=== PATIENT | female | born 1995 | race Caucasian/White ===

== ENCOUNTER 2018-05-05 09:45 | Day surgery (SDC) | payer MEDICAID, SELFPAY ==
[2018-05-05] VITALS (7 sets, daily range): BP systolic 106–144; BP diastolic 62–81; PULSE 65–81; RESP 14–16; TEMP 36.2–36.6; O2SAT 95–98; BMI 30.7
--- NOTE | 2018-05-05 | IMM_PTH ---
PATIENT: LUIS ALBERTO MOSLEY LOC: [facility] – [place] U#:[id number] AGE/SX: 23/F ROOM: RE05/05/[address]: Dr. Ana Hall DO : 1995 BED: DIS: 05/05/2018 SPEC #: [id number] RECD: 05/07/18 09:43 STATUS: XAVIER REWillem #: [id number] CATINA: 05/05/18 00:[address]: Ana aHll DEPT: IMMUNOHISTOCHEMISTRY RECD BY: Gill Patel ENTERED: 05/07/18 09:46 SP TYPE: IMMUNO OTHR DR: Out of [facility] Doctor Tissues: Product of conception, NOS Procedures: CD138 (initial) PHYSICIAN & INSTITUTION [place] [id number] SPECIMEN INFORMATION: Tissue Source: Products of conception Clinical Info: Missed Specimen Number: [id number] CPT code: 27754 METHODOLOGY: Deparaffinized sections of prefer/formalin-fixed tissue or PAP/DQ stained slides are incubated with monoclonal/polyclonal antibodies/oligonucleotide probes. Localization is made via biotin free immunoperoxidase method. Appropriate controls are performed and reacted as expected. Results on target cell population are indicated in the following table: RESULTS: ANTIBODY / CLONE RESULT CD138 (B-A38) positive, rare plasma cells These tests were developed and their performance characteristics determined by [facility]. They may not have been cleared or approved by the U.S. Food and Drug Administration. The FDA has determined that such clearance or approval is not necessary. INTERPRETATION: Products of conception: Consistent with mild chronic endometritis. SJ:scott 05/07/18
--- NOTE | 2018-05-05 11:30 | POC_PTH ---
PATIENT: LUIS ALBERTO MOSLEY LOC: [facility] [place] U#:[id number] AGE/SX: 23/F ROOM: RE05/05/[address]: Dr. Ana Hall DO : 1995 BED: DIS: 05/05/2018 SPEC #: [id number] RECD: 05/05/18 12:17 STATUS: XAVIER RAMIREZ #: [id number] CATINA: 05/05/18 11:[address]: Ana Hall DEPT: SURGICAL PATHOLOGY RECD BY: Chiqui Perez ENTERED: 05/05/18 12:30 SP TYPE: PROD CONC OTHR DR: Out of [facility] Doctor Tissues: Product of conception, NOS Procedures: Surgery Specimen Level IV HEADER OPERATION: Dilation and curettage, suction PRE-OP DIAGNOSIS: Missed TISSUE SUBMITTED: Products of conception MICROSCOPIC DIAGNOSIS Products of conception: Dyschronous endometrium consisting predominantly of proliferative endometrium mixed with focal area of weakly secretory endometrium. Rare plasma cells consistent with mild chronic endometritis. See comment. Fragments of benign endocervical mucosa. TIARA:scott 05/06/18 COMMENT The entire specimen is examined. Chorionic villii are not identified in the submitted specimen. Immunohistochemistry ([id number]) supports the diagnosis of mild chronic endometritis. Correlation with clinical findings and appropriate follow up are necessary. Case has been reviewed in consultation with Dr. Farnsworth who concurs with the above diagnosis. IDC:AM MICROSCOPIC DESCRIPTION Slides are reviewed. GROSS DESCRIPTION Received in fixative is one container labeled with the patient's name and designated products of conception. The specimen consists of multiple irregular fragments of james-pink soft tissue that in aggregate measure 3 x 2.5 x 0.3 cm. The entire specimen is submitted in one cassette. / TIARA:scott 05/05/18 TC:5 CPT: 40153
--- NOTE | 2018-05-05 12:42 | PCM.OP.BLANK ---
Problem List (1) Missed Status: Acute Operative Report Date of Procedure: 05/05/18 Preoperative diagnosis: missed Postoperative diagnosis: missed Procedure performed: suction dilation and curettage Anesthesia: MAC Estimated blood loss: 30 cc Complications: none Findings: Uterus palpated to be about 5 weeks in size. Cervix was closed. Products of conception noted during suction dilation and curettage Indications: The patient is a 23-year-old who was diagnosed with a missed in the office. She tried one dose of Cytotec. After the Cytotec an ultrasound was performed showing retained products of conception measuring [id number]. Her options including repeat Cytotec, and surgery were discussed. Risks, benefits, and alternatives were discussed and she elected for a suction dilation and curettage. Procedure note: The patient was taken to the operating room where MAC anesthesia was administered without difficulty. The patient was prepped and draped in the usual usual sterile fashion in lithotomy position. A weighted speculum was placed. The anterior lip of the cervix was grasped with a single-tooth tenaculum. At this time the cervix was serially dilated to accommodate a size 7 mm suction curettage. The 7 mm suction curettage was advanced into the uterine cavity without difficulty and was used to suction contents of the uterus. Following removal of the products of conception after 3 passes, a sharp curettage was used and a gritty texture was noted. No further retained products of conception was noted with sharp curettage. The single-tooth tenaculum was then removed. There was bleeding noted at the tenaculum site on the patient's left. Pressure was applied for several minutes at the site using a ring forcep, but there was continued bleeding. A 3-0 [address] was used to place a [id number] suture over the tenaculum site to ensure hemostasis. Fundus was firm and bleeding was hemostatic. All instruments were removed. The patient was stable at the completion of the procedure. Sponge, lap, and instrument counts were correct.
--- NOTE | 2018-05-05 12:59 | PCM.DC.D&C ---
Discharge Diet: No Restrictions Discharge Activity: Return to Normal Activity Return to work on:: 05/11/18December shower in (days): 0 May resume sexual activity in: No Restrictions - Must wait to try to conceive until after first normal period. Abstain from intercourse or use condoms regularly and consistently until first normal period. Weight Bearing Status: Weight bearing as tolerated Lifting Restrictions: None Call your doctor if you observe: Fever of 101 or Higher, Using more than one pad per hour, Shortness of breath, Uncontrolled pain, - - Nausea and vomiting Additional Instructions: Take Tylenol and Motrin as needed for the pain. You will have light bleeding - spotting, and cramping. To follow up in the office in 1 week. Allergies/Adverse Reactions: Allergies Sulfa (Sulfonamide Antibiotics) Allergy (Verified 05/01/18 08:42) Swelling Medications to take at Discharge Albuterol Inhaler [Ventolin Hfa (SP)] 1 - 2 puff INHALATION Q4H PRN PRN 05/01/18 Primary Care Physician: Rao Gonzalez,Out of [Primary Care Provider] - Test Results: Test results from this visit will be discussed in further detail at your follow-up appointment, if applicable. Proposed Discharge Date: 05/05/18
== END 2018-05-05 13:30 | disposition home or self-care (01) ==
LOC: SDC 09:47 → AC 09:48
PROVIDERS: Visit Provider Obstetrics & Gynecology
PROC: (CPT 59820; principal; 2018-05-05 11:15)
DX: O02.1 Missed abortion (principal); J45.909 Unspecified asthma, uncomplicated; F17.210 Nicotine dependence, cigarettes, uncomplicated
CPT/HCPCS: 59820; 36415; 86850; 86900; 88305; 88342; J7120; J2405

== ENCOUNTER 2019-05-03 16:07 | Emergency (ER) | payer MEDICAID, SELFPAY ==
[2019-05-03 16:08] VITALS: BP 124/73; PULSE 101; RESP 18; TEMP 36.5; O2SAT 97; BMI 35.2
--- NOTE | 2019-05-03 16:29 | ED.DCSUM_ITS ---
History of Present Illness Chief Complaint: Complaint Detail of Chief Complaint: Dysuria Informant: Patient Onset: Today Current Severity: Mild Maximum Severity: Mild Narrative: Patient presents with mild dysuria and mild low back pain today. She is 19 weeks 6 days . 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 They checked her urine and noted blood in the urine along with a UTI and told her she had to come to the emergency room. Patient denies any abdominal cramping. She states she did notice some pink tinge on the toilet paper when she wiped after urinating, but she does not know of any vaginal bleeding. She has been feeling the baby move today. Past Medical History - Allergies and Home Meds Allergies/Adverse Reactions: Allergies Sulfa (Sulfonamide Antibiotics) Allergy (Verified 05/01/18 08:42) Swelling Primary Care Physician: Pura Flores CNM [Certified Nurse It Architecture Analyst] - 3-5 Days if not improving Doctors: [facility] PINKED EDGE SEWING MACHINE OPERATOR Prior records reviewed: Yes Past Medical History: - - Reviewed Lives: With Family Smoking Status: Current every day smoker Review of Systems General: Denies: Chills, Fever Eyes: Denies: Visual changes - bilaterally ENT: Denies: Bilateral ear pain Cardiovascular: Denies: Chest pain Respiratory: Denies: Dyspnea Gastrointestinal: Denies: Abdominal pain, Nausea, Vomiting, Diarrhea Genitourinary: Reports: Dysuria, Hematuria Musculoskeletal: Reports: Back pain Skin: Denies: Rash Endocrine: Denies: Polyuria, Polydipsia Hematologic: Denies: Easy bruising Allergy: Denies: Uticaria Physical Exam Vital Signs/Narrative: Vital Signs Temp Pulse Resp BP Pulse Ox 05/03/19 16:08 97.7 F L 101 H 18 124/73 H 97 Inital Vital Signs reviewed: Yes General: Well nourished, Well developed Head: Normocephalic ENT: Moist mucous membranes Neck: Supple Cardiovascular: Regular rate, Regular rhythm Respiratory: No distress, CTA bilaterally Abdomen: Soft - Gravid abdomen, Nontender Back: Nontender Extremities: Nontender Skin: Normal color Neurological: Alert, Oriented x3 Psychological: Normal affect Diagnostic/Tx/Re-eval Laboratory Results 05/03/19 16:00 Urine Color Yellow Urine Clarity Cloudy Urine pH 6.0 Ur Specific [place] 1.020 Urine Protein 15 H Urine Glucose (UA) Normal Urine Ketones 15 H Urine Occult Blood 50 H Urine Nitrite Negative Urine Bilirubin Negative Urine Urobilinogen Normal Ur Leukocyte Esterase 500 H Urine RBC 5-10 SEEN Urine WBC 50-100 SEEN Ur Squamous Epith Cells 0-5 SEEN Urine Bacteria RARE Urine Mucus 0 SEEN - Medical Decision Making Pelvic exam was performed at bedside. No vaginal bleeding is noted. Blood type is B+. heart tones are measured at 144. I will speak with Pura Flores with [facility] PINKED EDGE SEWING MACHINE OPERATOR. Patient be treated with a course of Keflex for her UTI. Urine culture has been sent. ED Disposition - Plan for ED Patient: Disposition: Home or Assisted Living Diagnosis: Cystitis Instructions: Bladder Infection, Female (Adult) Prescriptions: Cephalexin [Keflex] 500 mg PO BID #14 cap Prescription Printed Referrals: Pura Flores CNM [Certified Nurse It Architecture Analyst] - 3-5 Days if not improving
[2019-05-03 16:48] LABS: Mucous, Urine 0 SEEN /hpf (<or=2+)
[2019-05-03 17:08] LABS: Color, Urine Yellow (Yellow); Glucose, Dipstick Normal (Normal); Ketone-Dipstick 15 mg/dl (Negative); Leukocyte Esterase-Dipstick 500 /ul (Negative); Nitrite-Dipstick Negative (Negative); Occult Blood-Urine 50 /ul (Negative); Protein-Dipstick 15 mg/dl (Negative); Urine Bilirubin Dipstick Negative (Negative); Urine Clarity Cloudy (Clear); Urine Urobilinogen Normal (Normal)
[2019-05-03 17:12] LABS: Red Blood Cells-Urine 5-10 SEEN /hpf (0-5); Squamous Epithelial Cells - UA 0-5 SEEN /hpf (5-10); White Blood Cells 50-100 SEEN /hpf (0-5)
[2019-05-03 17:13] LABS: Bacteria RARE /hpf (None Seen)
[2019-05-03] MEDS: Cephalexin 250 MG Capsule 500 MG PO (17:31)
[2019-05-03 17:33] VITALS: PULSE 110; RESP 16; O2SAT 98
== END 2019-05-03 17:33 | disposition home or self-care (01) ==
PROVIDERS: Emergency Provider Emergency Medicine
DX: O23.42 Unspecified infection of urinary tract in pregnancy, second trimester (principal); O99.332 Smoking (tobacco) complicating pregnancy, second trimester; F17.200 Nicotine dependence, unspecified, uncomplicated; Z3A.19 19 weeks gestation of pregnancy
CPT/HCPCS: 81001; 87086; 87088; 99283

== ENCOUNTER 2019-07-26 10:30 | Outpatient (RCR) | payer MEDICAID, SELFPAY | END 2019-07-31 23:59 | LOC: DC 10:30 | PROVIDERS: Visit Provider Advanced Practice Midwife | DX: O24.410 Gestational diabetes mellitus in pregnancy, diet controlled (principal) | CPT/HCPCS: 97802; G0108 ==

== ENCOUNTER 2019-08-02 14:54 | Outpatient (RCR) | payer MEDICAID, SELFPAY | END 2019-08-02 23:59 | disposition home or self-care (01) | LOC: DC 14:54 | PROVIDERS: Visit Provider Advanced Practice Midwife | DX: Z71.3 Dietary counseling and surveillance (principal); O24.410 Gestational diabetes mellitus in pregnancy, diet controlled ==

== ENCOUNTER 2019-09-15 07:00 | Inpatient (IN) | payer MEDICAID, SELFPAY ==
[2019-09-15 07:17] VITALS: BMI 38.4
[2019-09-15] MEDS: Lactated Ringers 1,000 ML 50 ML IV (07:20)
[2019-09-15 07:39] LABS: Absolute Lymphocyte Count 2.77 X10^3/uL (0.83-4.51); Absolute Neutrophil Count 10.5 X10^3/uL (2.0-7.7); Basophil# 0.07 X10^3/uL; Basophil% 0.5 % (0-1); Eosinophil# 0.19 X10^3/uL; Eosinophils% 1.2 % (0-5); Hematocrit 39.3 % (37-47); Hemoglobin 13.6 g/dL (12.0-15.0); Lymphocyte # 2.77 X10^3/ul (4.0); Lymphocyte % 18.1 % (19-41); Mean Corp Hgb Conc 34.6 g/dL (32-36); Mean Corpuscular Volume 89.5 fL (81-99); Monocyte# 1.54 X10^3/uL; Monocyte% 10.1 % (0-10); NRBC Flagged by Analyzer 0 % (0-5); Neutrophil # 10.46 X10^3/uL (2.7-7.7); Neutrophil % 68.2 % (47-70); POSITIVE DIFFERENTIAL YES; Platelet Count 323 K/mm3 (150-450); RBC Distribution Width CV 13.8 % (11.6-14.6); RBC Distribution Width SD 44.9 fl (35.1-43.9); Red Blood Count 4.39 M/mm3 (4.2-5.4); White Blood Count 15.3 K/mm3 (4.4-11.0)
[2019-09-15] MEDS: Oxytocin 30 units/NS 500 ml 30 UNITS/500 ML IV.SOLN IV (07:39)
[2019-09-15 07:41] LABS: Bedside Glucose 117 mg/dL (70-110)
[2019-09-15 07:42] LABS: Differential Indicated SCAN CRITERIA MET
[2019-09-15 08:19] LABS: Differential Comment SCANNED
[2019-09-15 08:20] LABS: Atypical Lymphocyte 1+ %; Red Cell Morphology NORM C+C NORMAL (NORM C&C)
[2019-09-15] MEDS: Lactated Ringers 500 ML 999 ML IV (08:45)
[2019-09-15 08:55] LABS: Bedside Glucose 84 mg/dL (70-110)
[2019-09-15] MEDS: fentaNYL-bupivacaine (epidural) 100 ML BAG EPIDURAL ×2 (09:45→15:35)
[2019-09-15 10:35] LABS: Pathologist Review Reviewed
[2019-09-15 12:30] LABS: Bedside Glucose 129 mg/dL (70-110)
[2019-09-15 13:36] LABS: Bedside Glucose 79 mg/dL (70-110)
[2019-09-15 14:36] LABS: Bedside Glucose 57 mg/dL (70-110)
[2019-09-15 14:50] LABS: Bedside Glucose 64 mg/dL (70-110)
[2019-09-15 15:05] LABS: Bedside Glucose 84 mg/dL (70-110)
[2019-09-15] MEDS: Oxytocin 30 units/NS 500 ml 30 UNITS/500 ML IV.SOLN 334 UNITS IV (15:46)
--- NOTE | 2019-09-15 15:56 | PCM.HP.OB ---
History Date of Admission: 09/15/19 Final NINA: 09/21/19 Gestational age: 39 Weeks and 1 Days History of this : This is a 24 year-old, -0-2-1 who presents at 39-1/7 weeks gestation for induction of labor due to gestational diabetes, not on medications. However, her blood sugars were increasing significantly. There was a question about compliance. Denies any gross vaginal bleeding or leaking of fluid. She had good movement. He has a history of one previous full-term vaginal delivery complicated by hemorrhage. Is concerned about this baby having tensely a clubfoot. Medical history is significant for asthma, depression, and kidney stones. Social history significant for tobacco use, she quit during the . Allergies Sulfa (Sulfonamide Antibiotics) Allergy (Verified 09/15/19 09:25) Swelling Home Medications: Home Medications Albuterol Inhaler [Ventolin Hfa (SP)] 1 - 2 puff INHALATION Q4H PRN PRN 05/01/18 Smoking Status: Current some day smoker Alcohol: None Number of Fetus(es): 1 NST - FHR Rate Baby A Baseline: normal Variability:: Moderate Accelerations:: 15 x 15 NST Reactive:: Yes History Past Pregnancies: Past Pregnancies Delivery Date Name GA/ Weeks Outcome Route Wt Sex Labor Length Anesthesia Delivery Location Provider FOB Expected Delivery Method: Spontaneous Vaginal Review of Systems Constitutional: Denies: Chills, Fever Eyes: Denies: Blurred vision HEENT: Reports: Head Aches - intermittent. Denies: Visual Changes Cardiovascular: Denies: Chest Pain, Chest Pressure Respiratory: Denies: Cough Gastrointestinal: Denies: Abdominal Pain Genitourinary: Denies: Dysuria Skin: Denies: Rash Neurological: Denies: Blurred vision, Double vision, Change in Speech, Slurred speech, Confusion Hematologic/ Lymphatic: Denies: Easy Bruising Physical Exam General: Alert, Cooperative, No apparent distress Cardiovascular: Regular rate Lungs: Normal air movement Abdomen: Soft, Non Tender, Non-Distended, Gravid, Appropriate for Gestational Age Extremities:: No edema Neurological: Cranial nerves II-XII grossly intact MARINE SUPERINTENDENT: Normal external genitalia Estimated gestational size: Appropriate for gestational size Presentation: Cephalic Cervix Dilation (cm): 3 Station: -3 Effacement (%): 60 Assessment/Plan All Active Problems Missed (Acute) This is a 24 year-old, -0-2-1 at 39-1/7 weeks for labor due to gestational diabetes with blood sugars starting to be more labile toward the end of . She is not on medication. Will monitor blood sugars in labor. Risk benefits and alternatives to induction were discussed with the patient, questions were answered to her satisfaction she desired to proceed. Consent was signed. We will proceed with Pitocin and artificial rupture membranes. May have epidural if desires for pain control.
--- NOTE | 2019-09-15 16:04 | PCM.OPRPT ---
Vaginal Delivery Maternal Presentation: Medically Indicated Induction Method of Induction: Pitocin, Amniotomy Medical Reason for Induction: - - gestational diabetes Amniotic Membrane Rupture Type: Artificial Amniotic Fluid Description: Clear Final NINA: 09/21/19 Gestational age: 39 Weeks and 1 Days Date of Procedure: 09/15/19 Pre-Operative Diagnosis: labor Post-Operative Diagnosis: same Surgery/ Procedure Performed: Spontaneous Vaginal Delivery Type of Anesthesia: Epidural Description of Procedure: A vigorous male infant was delivered [KEVIN] over an intact perineum. The remainder the was delivered with maternal pushing and gentle traction only in less than 15 seconds. The Pitocin infusion was initiated for active management of the third stage. The cord was clamped and cut [after 1 minute]. The infant was attended to by the waiting nursing staff. The placenta was delivered spontaneously and intact. The cervix and vagina were intact. Sponge and needle counts were correct. A vaginal sweep was completed by me. Presentation: KEVIN Placental Delivery Description: Spontaneous Placenta Disposition: [facility] Cord Vessel Description: 3 Vessels Cord Entanglement: None Drain: Dockery to straight drain Estimated Blood Loss: 200 Infant A gender: Male Episiotomy Description: None Laceration: None Medications given after delivery: IV Pitocin Complications: None
[2019-09-15] MEDS: Methylergonovine 0.2 MG/ML Ampul IM (16:46)
[2019-09-15 17:35] LABS: Bedside Glucose 66 mg/dL (70-110)
[2019-09-15] MEDS: Naproxen 250 MG Tablet 500 MG PO (17:55)
[2019-09-15 18:51] LABS: Bedside Glucose 141 mg/dL (70-110)
[2019-09-15] MEDS: Acetaminophen 500 MG Tablet 1000 MG PO (20:21)
[2019-09-15 20:23] VITALS: BP 118/75; PULSE 92; RESP 18; TEMP 37
[2019-09-15] MEDS: Dibucaine 30 GM Tube 1 APPLIC TOPICAL (21:56)
[2019-09-15 23:45] VITALS: BP 113/69; PULSE 96; RESP 18; TEMP 36.4
[2019-09-16 03:55] VITALS: BP 114/73; PULSE 88; RESP 16; TEMP 36.8
[2019-09-16] MEDS: Naproxen 250 MG Tablet 500 MG PO (04:05)
[2019-09-16] MEDS: Acetaminophen 500 MG Tablet 1000 MG PO ×2 (06:43→18:13)
[2019-09-16 08:25] VITALS: BP 112/57; PULSE 83; RESP 16; TEMP 36.4
--- NOTE | 2019-09-16 09:18 | PCM.PN.OB ---
Subjective: pain well controlled, average lochia - Physical Exam Vitals/I&O's: Vital Signs Temp Pulse Resp BP 98.3 F 88 16 114/73 09/16/19 03:55 09/16/19 03:55 09/16/19 03:55 09/16/19 03:55 Oxygen Delivery Method Room Air Weight: 98.43 kg Body Mass Index (BMI) 38.4 Intake and Output for Last 24 Hours 09/14/19 09/15/19 09/16/19 23:59 23:59 23:59 Intake Total 2087.13 / 2087.13 Output Total 900 / 900 Balance 1187.13 / 1187.13 General: Alert, Cooperative, No apparent distress Laboratory Results 09/15/19 07:20: Diff Path Review Reviewed 09/15/19 07:20: Blood Type B POSITIVE, Antibody Screen NEGATIVE 09/15/19 12:23: POC Glucose 129 H 09/15/19 13:26: POC Glucose 79 09/15/19 14:29: POC Glucose 57 L 09/15/19 14:46: POC Glucose 64 L 09/15/19 15:03: POC Glucose 84 09/15/19 17:22: POC Glucose 66 L 09/15/19 18:42: POC Glucose 141 H Current Medications Acetaminophen (Tylenol) 1,000 mg PO Q8H PRN PRN PRN Reason: Pain Score 1-3/10 Last Admin: 09/16/19 06:43 Dose: 1,000 mg Documented by: Bisacodyl (Dulcolax) 10 mg RECTAL UD PRN PRN Reason: If no BM Dibucaine (Dibucaine) 1 applic TOPICAL TID PRN PRN; Protocol PRN Reason: Discomfort Last Admin: 09/15/19 21:56 Dose: 1 tube Documented by: Hydrocortisone (Hytone) 1 applic TOPICAL TID PRN PRN; Protocol PRN Reason: Discomfort Methylergonovine Maleate (Methergine) 0.2 mg IM X1 PRN PRN Reason: Excess bleeding/uterine atony Last Admin: 09/15/19 16:46 Dose: 0.2 mg Documented by: Naproxen (Naprosyn) 500 mg PO Q8H PRN PRN PRN Reason: Pain Score 1-3/10 Last Admin: 09/16/19 04:05 Dose: 500 mg Documented by: Ondansetron HCl (Zofran) 4 mg IV Q4H PRN PRN PRN Reason: Nausea Senna/Docusate Sodium (Senokot-S, Makenzie-Colace) 1 - 2 tablet PO DAILY PRN PRN PRN Reason: Constipation Simethicone (Mylicon) 80 mg PO PCHS PRN PRN Reason: Indigestion/Stomach pain Sodium Chloride () 5 - 15 ml IV UD PRN PRN Reason: SALINE FLUSH Throat Lozenges (Dermoplast (Sp)) 1 applic TOPICAL TID PRN PRN; Protocol PRN Reason: Pain Score 1-/10 Last Admin: 09/15/19 19:58 Dose: 1 applic Documented by: Medical Necessity - Tobacco Use Smoking Status: Current some day smoker Assessment/Plan All Active Problems Missed (Acute) PPD#1 s/p doing well infant doing well routine care likely d/c tomorrow
--- NOTE | 2019-09-16 10:37 | PCM.PN.OB ---
Subjective: pain well controlled, average lochia - Physical Exam Vitals/I&O's: Vital Signs Temp Pulse Resp BP 97.6 F L 83 16 112/57 L 09/16/19 08:25 09/16/19 08:25 09/16/19 08:25 09/16/19 08:25 Oxygen Delivery Method Room Air Weight: 98.43 kg Body Mass Index (BMI) 38.4 Intake and Output for Last 24 Hours 09/14/19 09/15/19 09/16/19 23:59 23:59 23:59 Intake Total 2087.13 / 2087.13 Output Total 900 / 900 Balance 1187.13 / 1187.13 General: Alert, Cooperative, No apparent distress Laboratory Results 09/15/19 12:23: POC Glucose 129 H 09/15/19 13:26: POC Glucose 79 09/15/19 14:29: POC Glucose 57 L 09/15/19 14:46: POC Glucose 64 L 09/15/19 15:03: POC Glucose 84 09/15/19 17:22: POC Glucose 66 L 09/15/19 18:42: POC Glucose 141 H Current Medications Acetaminophen (Tylenol) 1,000 mg PO Q8H PRN PRN PRN Reason: Pain Score 1-3/10 Last Admin: 09/16/19 06:43 Dose: 1,000 mg Documented by: Bisacodyl (Dulcolax) 10 mg RECTAL UD PRN PRN Reason: If no BM Dibucaine (Dibucaine) 1 applic TOPICAL TID PRN PRN; Protocol PRN Reason: Discomfort Last Admin: 09/15/19 21:56 Dose: 1 tube Documented by: Hydrocortisone (Hytone) 1 applic TOPICAL TID PRN PRN; Protocol PRN Reason: Discomfort Methylergonovine Maleate (Methergine) 0.2 mg IM X1 PRN PRN Reason: Excess bleeding/uterine atony Last Admin: 09/15/19 16:46 Dose: 0.2 mg Documented by: Naproxen (Naprosyn) 500 mg PO Q8H PRN PRN PRN Reason: Pain Score 1-3/10 Last Admin: 09/16/19 04:05 Dose: 500 mg Documented by: Ondansetron HCl (Zofran) 4 mg IV Q4H PRN PRN PRN Reason: Nausea Senna/Docusate Sodium (Senokot-S, Makenzie-Colace) 1 - 2 tablet PO DAILY PRN PRN PRN Reason: Constipation Simethicone (Mylicon) 80 mg PO PCHS PRN PRN Reason: Indigestion/Stomach pain Sodium Chloride () 5 - 15 ml IV UD PRN PRN Reason: SALINE FLUSH Throat Lozenges (Dermoplast (Sp)) 1 applic TOPICAL TID PRN PRN; Protocol PRN Reason: Pain Score 1-10/10 Last Admin: 09/15/19 19:58 Dose: 1 applic Documented by: Medical Necessity - Tobacco Use Smoking Status: Current some day smoker Assessment/Plan All Active Problems Missed (Acute) PPD#1 doing well doing well d/c home later today if ok w/ peds
--- NOTE | 2019-09-16 10:38 | DCINST_ITS ---
Discharge Diet: No Restrictions Discharge Activity: Return to Normal Activity, May not drive while taking narcotic pain medications., May Shower May resume sexual activity in: 4-6 weeks Additional Activity Instructions:: Nothing in the vagina for 4-6 weeks. You may return to work/school in 6 weeks. Call your doctor if your incision/area has: Continuous Slow Oozing, Sudden Increased Bleeding, Increased Pain/ Swelling, Increased Redness, Foul Smelling Discharge Additional Instructions: If you experience any of the following, contact your healthcare provider. * Bleeding that soaks a pad every hour for 2 hours * Fever 100.4 or higher * Unrelieved incision or abdominal pain * Swelling, redness, discharge or bleeding from your incision or episiotomy site * Your incision begins to separate * Problems urinating (including inability to urinate or burning while urinating). * Visual changes * Severe headache * Flu-like symptoms * Pain or redness in one of both of your breasts * Pain, warmth, tenderness or swelling in your legs, especially the calf area * Frequent nausea and vomiting * Symptoms of depression or anxiety If you experience any of the following, call 911 or go to the nearest Emergency Room. * Chest pain * Problems breathing * Seizure activity * Partial or complete paralysis of a body part, slurred speech, weakness or drooping of the face, or a sudden inability to walk or hold your balance Allergies/Adverse Reactions: Allergies Sulfa (Sulfonamide Antibiotics) Allergy (Verified 09/15/19 09:25) Swelling Medications to take at Discharge Albuterol Inhaler [Ventolin Hfa] 1 - 2 puff INHALATION Q4H PRN PRN 05/01/18 Ibuprofen [Motrin] 600 mg PO Q6H PRN #60 tab 09/16/19 The following prescriptions were given: Ibuprofen [Motrin] 600 mg PO Q6H PRN #60 tab PRN Reason: Pain Transmission Status: Pending to [facility] Please Follow Up With: Marium Buck MD - [phone] When: Call to make an appointment with our office in 6 weeks. If you had elevated Blood Pressure or 4th degree laceration you will need to be seen in 2 weeks. Primary Care Physician: CLOVER ROBISON [Other] Test Results: Test results from this visit will be discussed in further detail at your follow- up appointment, if applicable.
[2019-09-16 12:45] VITALS: BP 132/58; PULSE 100; RESP 14; TEMP 36.9
--- NOTE | 2019-09-16 17:00 | CASEMGMT ---
Social Work Assessment Labor and Delivery Unit Patient Address: [address] [place] [address], [place] [address] Patient Date of Referral: 09.16.2019 Time of Referral: 1400 Referred By: Dr. Selby Date of Intervention: 09.16.2019 Time of Intervention: [id number] Reason for Referral: maternal history of depression History obtained from: mother of baby (MOB) Wilda Spicer, father of baby (FOB) Lawrence Spicer, and medical records. Household composition: MOB, FOB, and their older daughter. Plan for to live in this home as well. Patient's parent/guardian status: MOB is age 26 to FOB, and have been together for 6 years. No reports of or indication of any abuse or safety concerns in the home. MOB and FOB now have 2 children together: daughter Deng (born 08.09.2017) and Elliot (born 09.15.2021). Medical History: MOB is G4, P1 to 2 after delivering Elliot. MOB with care starting at 7 weeks gestation and regular thereafter. MOB reports first delivery at [place] and that delivery experiences was traumatic describing a hemorrhage and that MOB ?flat lined.? MOB with history of gestational diabetes and two miscarriages. Elliot was born at 39 weeks, weighed 7 pounds 7 ounces. Apgars 8 and 9. 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 Educational Status: high school. Financial Status: BELINDA works in [employer] and is off for the next 6 weeks due to weather. MOB and FOB reports to be doing okay right now. Infant Supplies: MOB reports to have all needed supplies including a safe sleep space and car seat. Baby is being bottle fed formula and report to have this as well. Childcare/Caregiver(s): MOB and then help from FOB. Transportation: No reported issues. Programs/Agencies Involved: Active with WIC and with [facility] for medical. MOB and FOB agree to a [facility] referral for both children. Children Services/Legal Issues: MOB denies any history with children services. No reports of any legal issues. Behavioral Health Issues: Mental Health History: MOB reports history of depression and anxiety since childhood. MOB reports has been in counseling and has been on medication in the past. Reports that Zoloft 50mg, once daily, worked well for MOB. MOB denies any history of suicidal thoughts or attempts, though this fiction and nonfiction prose writer noted a comment in the chart that there have been no suicidal thoughts since 07/2018. MOB describes OCD and anxiety which led to depression. MOB reports after months of worrying and fear, constantly checking on the baby, fears that something bad would happen to the baby, MOB did seek out help. MOB reports was offered medication or counseling and decided on counseling which helped. MOB reports she saw [facility] psychologist at [facility] in [place]. MOB describes worry surfacing during this as well, about her older daughter being okay as well as the baby developing and being okay, describes intrusive thoughts and disturbing dreams (regarding the club feet and whether baby would be okay). MOB denies any thoughts of harm to self or to others. Family History: MOB reports her father has history of alcohol abuse issues. A cousin by accidental overdose of opiates a few years ago. Substance Use History: MOB denies substance use for self that seeing other family members? struggles has made MOB not to want to use drugs. MOB report will have a glass of wine once in a while, and that in 6 years together with FOB they have only gone out to drink 2 times. Positive for history of tobacco smoking. Drug Screens: Negative maternal screen on 02.02.2019. Family/Social Stressors: No particular family or social stressors reported. Main stressor is MOB?s worry and working on managing symptoms. Support Systems: JULIET reports FOMarcio is a strong support person and will be home for 6 weeks and able to help MOB out. MOB reports she is able to talk to FOB now about her worries and he is able to use logic with MOB to help ground MOB. MOB reports her mother will also be helpful with the children if needed. Depression/Shaken Baby/Safe Sleeping: MOB is aware of safe sleeping and shaken baby prevention, able to give appropriate responses to both. MOB reports reports she did not introduce a blanket to her older daughter while sleeping until the child was 1 years old, and this was only due to FOB insisting it was time to do so. MOB and FOB both have awareness of depression and anxiety from last experience, both listened to education on this topic, including that fathers can also be at risk. MOB able to reports coping tools she has learned in counseling. ASSESSMENT: MOB and FOB both pleasant and engaging with director of social media marketing. FOB was quiet, allowing MOB to talk, interjecting appropriately when needed and presenting as supportive to MOB. MOB appearing open about her struggle with mood and anxiety issues, the fears/stigma/guilt associated with this. Supportive listening offered to MOB validated that MOB is doing the best she can do as well as reinforced MOB?s healthy decisions to take care of self last time around with counseling. MOB reports that she plans to call the counselor again to get things going, but thinks this time that adding a medication would be helpful. From the details that MOB describes and from MOB?s reports of medication helping in the past, it seems that adding another intervention such as medication may be beneficial to MOB. MOB asked appropriate questions during social work visit. MOB does reports to have feelings for her new baby and is excited for the children to meet. MOB reports it will be helpful to have FOB at home to help, reports to have needed supplies. No concerns voiced by nursing staff regarding mother/child interactions or bonding. This fiction and nonfiction prose writer observed FOB to handle in a gentle and loving way. Observed MOB to also hold the baby and was appropriate in interactions. MOB agreeable to have a Help Me Grow referral for both children, as another support to MOB. This may be helpful as a lot of MOB?s worries surround development and milestones, which [facility] can help to address. MOB had good eye contact, spontaneous and logical speech and thought process. Mood and affect appropriate and congruent to content. This fiction and nonfiction prose writer spoke with LATONIA Pierre about conversation with MOB and desire to start a mediation for . Let RN know that MOB reports good experience with Zoloft in the past and from things MOB described it may be beneficial for MOB to restart medication. RN calling OB about a possible prescription for home going. This fiction and nonfiction prose writer did let MOB know that should the OB not write for a prescription then can talk with PCP or manjula get a referral to a psychiatrist. MOB voiced understanding. PLAN: MOB and baby to home with FOB who will be home to help. Resource list for [facility] provided, depression packet given, and information on [facility] program as another option to address any issues (should MOB wants something more intensive). [facility] referral being made. MOB voices plan to call and get back in with a counselor. MOB voices agreement with plan. -NATE Soto, SPEECH INSTRUCTOR
[2019-09-16 17:10] VITALS: BP 125/83; PULSE 89; RESP 16; TEMP 36.5
[2019-09-16] MEDS: Sertraline 50 MG Tablet 25 MG PO (19:17)
== END 2019-09-16 20:52 | disposition home or self-care (01) | DRG 560 ==
PROVIDERS: Advanced Practice Midwife; Admitting Provider Obstetrics & Gynecology; Referring Provider Obstetrics & Gynecology; Visit Provider Obstetrics & Gynecology
DX: O24.429 Gestational diabetes mellitus in childbirth, unspecified control (principal); J45.909 Unspecified asthma, uncomplicated; O99.52 Diseases of the respiratory system complicating childbirth; Z37.0 Single live birth; Z3A.39 39 weeks gestation of pregnancy; Z87.891 Personal history of nicotine dependence
CPT/HCPCS: 59025; 59050; 82962; 85025; 86850; 86900; 86901; 99218; J7120; G0378

== ENCOUNTER → 2020-07-25 17:33 | Outpatient (CLI) | payer MEDICAID, SELFPAY | PROVIDERS: Referring Provider Advanced Practice Midwife; Visit Provider Advanced Practice Midwife | DX: Z03.818 Encounter for observation for suspected exposure to other biological agents ruled out (principal) | CPT/HCPCS: 87635; C9803; U0003 ==

== ENCOUNTER 2020-07-31 07:05 | Inpatient (IN) | payer MEDICAID, SELFPAY ==
[2020-07-31] VITALS (40 sets, daily range): BP systolic 89–138; BP diastolic 11–83; PULSE 92–116; RESP 18; TEMP 36.6–37.6; O2SAT 92–99; BMI 39.2
[2020-07-31] MEDS: Lactated Ringers 1,000 ML 50 ML IV (07:45)
[2020-07-31] MEDS: Oxytocin 30 units/NS 500 ml 30 UNITS/500 ML IV.SOLN IV (07:52)
[2020-07-31 08:13] LABS: Absolute Lymphocyte Count 2.08 X10^3/uL (0.83-4.51); Basophil# 0.05 X10^3/uL; Basophil% 0.4 % (0-1); Eosinophil# 0.18 X10^3/uL; Eosinophils% 1.4 % (0-5); Hematocrit 39.5 % (37-47); Hemoglobin 13.3 g/dL (12.0-15.0); Lymphocyte # 2.08 X10^3/ul (4.0); Lymphocyte % 16.2 % (19-41); Mean Corp Hgb Conc 33.7 g/dL (32-36); Mean Corpuscular Hgb 30.4 pg (27.0-32.0); Mean Corpuscular Volume 90.2 fL (81-99); Monocyte# 1.27 X10^3/uL; Monocyte% 9.9 % (0-10); NRBC Flagged by Analyzer 0 % (0-5); Neutrophil # 9.03 X10^3/uL (2.7-7.7); Neutrophil % 70.2 % (47-70); Platelet Count 344 K/mm3 (150-450); RBC Distribution Width CV 14.1 % (11.6-14.6); RBC Distribution Width SD 46.5 fl (35.1-43.9); Red Blood Count 4.38 M/mm3 (4.2-5.4); White Blood Count 12.9 K/mm3 (4.4-11.0)
--- NOTE | 2020-07-31 08:38 | HP.PCM_ITS ---
- Problem List (1) Encounter for elective induction of labor Status: Acute (2) Short interval between pregnancies complicating , antepartum Status: Acute (3) History of gestational diabetes Status: Acute (4) History of hemorrhage Status: Acute (5) Family history of defect Status: Acute (6) Mild intermittent asthma Status: Acute (7) Depressive disorder Status: Acute (8) Family history of congenital heart defect Status: Acute History Date of Admission: 09/15/19 Final NINA: 08/07/20 Final NINA Source: US <20 weeks Gestational age: 39 Weeks and 0 Days History of this : This is a 25 year-old, G [5], P [2021], at 39 weeks gestational age for elective induction of labor. Allergies shellfish derived Allergy (Verified 07/31/20 07:58) Anaphylaxis Sulfa (Sulfonamide Antibiotics) Allergy (Verified 09/15/19 09:25) Swelling Home Medications: Home Medications Albuterol Inhaler [Ventolin Hfa] 1 - 2 puff INHALATION Q4H PRN PRN 05/01/18 Aspirin [Aspirin, Baby] 81 mg PO DAILY@0800 07/31/20 Pnv 119/Iron Fum/Folic Acid 1 cap PO DAILY 07/31/20 Sertraline HCl [Zoloft] 50 mg PO DAILY 07/31/20 Smoking Status: Current every day smoker Alcohol: None Substance Use Type: Anxiety Medications Number of Fetus(es): 1 NST - FHR Rate Baby A Baseline: 145 Variability:: Moderate Accelerations:: 15 x 15 Decelerations:: None FHR Category:: Category I Uterine Activity:: Irregular History Past Pregnancies: Past Pregnancies Delivery Date Name GA/ Weeks Outcome Route Wt Sex Labor Length Anesthesia Delivery Location Provider FOB Labs: RPR negative HBsAg negative HIV non reactive Hep C negative Rubella Immune 1hr elevated, 3hr GTT with 1 elevated level. B positive GC/CT negative GBS negative Expected Infant Delivery Method: Spontaneous Vaginal Review of Systems Constitutional: Denies: Chills, Fever, Weight Change HEENT: Denies: Head Aches, Sinus Congestion, Sinus Drainage Cardiovascular: Denies: Chest Pain, Palpitations Respiratory: Denies: Cough, Shortness of breath at rest, Sputum production Gastrointestinal: Denies: Abdominal Pain, Nausea, Vomiting Genitourinary: Denies: Dysuria Musculoskeletal: Denies: Joint Pain, Joint Tenderness Skin: Denies: Rash, Wounds Neurological: Denies: Numbness, Tingling, Focal weakness Psychiatric: Denies: Anxiety, Depression, Homicidal Ideations, Suicidal Ideations Hematologic/ Lymphatic: Denies: Easy Bruising, Easy Bleeding Physical Exam Vitals: Vital Signs Temp Pulse BP Pulse Ox 99.4 F H 105 H 138/83 H 96 07/31/20 08:10 07/31/20 08:10 07/31/20 08:09 07/31/20 08:10 General: Alert, Oriented x3, Cooperative HEENT: Atraumatic, Normocephalic Cardiovascular: Regular rate, Regular Rhythm, No murmurs Lungs: Clear to auscultation, Normal air movement, No rhonchi, No wheeze Abdomen: Bowel Sounds Present, Soft, Gravid Extremities:: No edema Neurological: Deep Tendon Reflexes 2+/4 and Symmetrical PRODUCT SAFETY OFFICER: Normal external genitalia Estimated gestational size: Appropriate for gestational size Presentation: Cephalic Cervix Dilation (cm): 5 - AROM clear fluid Station: -1 Effacement (%): 70 Assessment/Plan All Active Problems Missed (Acute) Encounter for elective induction of labor (Acute) Short interval between pregnancies complicating , antepartum (Acute) History of gestational diabetes (Acute) History of hemorrhage (Acute) Family history of defect (Acute) Mild intermittent asthma (Acute) Depressive disorder (Acute) Family history of congenital heart defect (Acute) This is a 25 year-old, G [], P [], at 39 weeks gestational age.
[2020-07-31] MEDS: fentaNYL 100 MCG/2 ML Ampul IV (09:17)
[2020-07-31] MEDS: Lactated Ringers 500 ML 999 ML IV ×2 (09:23→13:43)
[2020-07-31] MEDS: fentaNYL-bupivacaine (epidural) 100 ML BAG EPIDURAL (10:44)
[2020-07-31] MEDS: Oxytocin 30 units/NS 500 ml 30 UNITS/500 ML IV.SOLN 334 UNITS IV (14:16)
--- NOTE | 2020-07-31 14:26 | PCM.OPRPT ---
Problem List (1) Encounter for elective induction of labor Status: Acute (2) Short interval between pregnancies complicating , antepartum Status: Acute (3) History of gestational diabetes Status: Acute (4) History of hemorrhage Status: Acute (5) Family history of defect Status: Acute (6) Mild intermittent asthma Status: Acute (7) Depressive disorder Status: Acute (8) Family history of congenital heart defect Status: Acute Vaginal Delivery Maternal Presentation: Active Labor, Elective Induction Method of Induction: Pitocin Amniotic Membrane Rupture Type: Artificial Amniotic Fluid Description: Clear Final NINA: 08/07/20 Gestational age: 39 Weeks and 1 Days Date of Procedure: 07/31/20 Pre-Operative Diagnosis: Elective Induction of Labor Post-Operative Diagnosis: Vaginal Delivery Surgery/ Procedure Performed: Spontaneous Vaginal Delivery Type of Anesthesia: Epidural Description of Procedure: Patient progressed to complete with urge to push. of viable male over intact perineum at 1414. APGARS 7,8. head delivered and restituted, body then forthcoming. placed on maternal abdomen, stimulated, mouth and nares suctioned for secretions and strong cry. Cord clamping delayed and cut after pulsations ceased by FOB. Pitocin started for active 3rd stage management. Placenta delivered via ofelia with maternal effort, intact, 3 vessel cord. Perineum inspected and revealed intact, no repair. Fundus firm. Vaginal sweep completed. EBL 450ml. Sponge and instrument count completed by me. Mom and baby stable. Planning to bottle feed. Family bonding well. notified of delivery. Presentation: Vertex Placental Delivery Description: Spontaneous Placenta Disposition: [facility] Cord Vessel Description: 3 Vessels Cord Entanglement: None Estimated Blood Loss: 450 ml A gender: Male (1 minute): 7 (5 minute): 8 Episiotomy Description: None Laceration: None Medications given after delivery: IV Pitocin Complications: None
[2020-07-31] MEDS: 0.9% Saline Lock 10 ML Syringe IV (16:31)
[2020-07-31] MEDS: Ibuprofen 600 MG Tablet PO (20:20)
[2020-07-31] MEDS: Sertraline 50 MG Tablet PO (21:04)
[2020-07-31] MEDS: Prenatal Vits Tablet 1 TABLET PO (21:04)
[2020-08-01] VITALS (9 sets, daily range): BP systolic 119–138; BP diastolic 63–75; PULSE 88–100; RESP 16–18; TEMP 36.5–36.9
[2020-08-01] MEDS: Acetaminophen 500 MG Tablet 1000 MG PO (05:57)
[2020-08-01] MEDS: Ibuprofen 600 MG Tablet PO (05:58)
[2020-08-01 07:06] LABS: Hematocrit 37.6 % (37-47); Hemoglobin 12.6 g/dL (12.0-15.0); Mean Corp Hgb Conc 33.5 g/dL (32-36); Mean Corpuscular Hgb 30.4 pg (27.0-32.0); Mean Corpuscular Volume 90.8 fL (81-99); Mean Platelet Vol. 10.6 fl (6.2-12.0); Platelet Count 338 K/mm3 (150-450); RBC Distribution Width CV 14.1 % (11.6-14.6); RBC Distribution Width SD 46.3 fl (35.1-43.9); Red Blood Count 4.14 M/mm3 (4.2-5.4); White Blood Count 13.8 K/mm3 (4.4-11.0)
--- NOTE | 2020-08-01 08:36 | PN.OBGYN_ITS ---
Patient Problems: Active and Suspected Problems Encounter for elective induction of labor (Acute) Short interval between pregnancies complicating , antepartum (Acute) History of gestational diabetes (Acute) History of hemorrhage (Acute) Family history of defect (Acute) Mild intermittent asthma (Acute) Depressive disorder (Acute) Family history of congenital heart defect (Acute) Subjective: No complaints - Physical Exam Vitals/I&O's: Vital Signs Temp Pulse Resp BP Pulse Ox 98 F 95 18 136/73 H 97 08/01/20 07:49 08/01/20 07:53 08/01/20 05:48 08/01/20 07:53 07/31/20 13:21 Oxygen Delivery Method Room Air Weight: 226 lb 6.636 oz Body Mass Index (BMI) 39.2 Intake and Output for Last 24 Hours 07/30/20 07/31/20 08/01/20 23:59 23:59 23:59 Intake Total 2515.98 / 2515.98 Output Total 1000 / 1000 Balance 1515.98 / 1515.98 General: Alert, Oriented x3 Abdomen: Soft, Non Tender, Non-Distended - ff mid & below umb Extremities: No Calf Tenderness Laboratory Results 07/31/20 07:40: Blood Type B POSITIVE, Antibody Screen NEGATIVE 08/01/20 07:00: WBC 13.8 H, RBC 4.14 L, Hgb 12.6, Hct 37.6, MCV 90.8, MCH 30.4, MCHC 33.5, RDW Std Deviation 46.3 H, RDW Coeff of Naya 14.1, Plt Count 338, MPV 10.6 Current Medications Acetaminophen (Acetaminophen 500 Mg Tablet) 1,000 mg PO Q8H PRN PRN PRN Reason: Pain Score 1-10 Last Admin: 08/01/20 05:57 Dose: 1,000 mg Documented by: Bisacodyl (Bisacodyl 10 Mg Suppository) 10 mg RECTAL UD PRN PRN Reason: If no BM Dibucaine (Dibucaine 30 Gm Tube) 1 applic TOPICAL TID PRN PRN; Protocol PRN Reason: Discomfort Hydrocortisone (Hydrocortisone 2.5% Crm) 1 applic TOPICAL TID PRN PRN; Protocol PRN Reason: Discomfort Ibuprofen (Ibuprofen 600 Mg Tablet) 600 mg PO Q6H PRN PRN PRN Reason: Pain Score 1-10 Last Admin: 08/01/20 05:58 Dose: 600 mg Documented by: Methylergonovine Maleate (Methylergonovine 0.2 Mg/Ml Ampul) 0.2 mg IM X1 PRN PRN Reason: Excess bleeding/uterine atony Ondansetron HCl (Ondansetron 4 Mg/2 Ml Vial) 4 mg IV Q4H PRN PRN PRN Reason: Nausea Multivit/Folic Acid/Iron ( Vits Tablet) 1 tablet PO DAILY@1200 DANIKA Last Admin: 07/31/20 21:04 Dose: 1 tablet Documented by: Senna/Docusate Sodium (Senna/Docusate Sodium 1 Tablet) 1 - 2 tablet PO DAILY NC N PRN PRN Reason: Constipation Sertraline HCl (Sertraline 50 Mg Tablet) 50 mg PO DAILY@2200 DANIKA Last Admin: 07/31/20 21:04 Dose: 50 mg Documented by: Simethicone (Simethicone 80 Mg Tablet) 80 mg PO PCHS PRN PRN Reason: Indigestion/Stomach pain Sodium Chloride (0.9% Saline Lock 10 Ml Syringe) 5 - 15 ml IV UD PRN PRN Reason: SALINE FLUSH Last Admin: 07/31/20 16:31 Dose: 10 ml Documented by: Medical Necessity - Tobacco Use Smoking Status: Current every day smoker Assessment/Plan All Active Problems Missed (Acute) Encounter for elective induction of labor (Acute) Short interval between pregnancies complicating , antepartum (Acute) History of gestational diabetes (Acute) History of hemorrhage (Acute) Family history of defect (Acute) Mild intermittent asthma (Acute) Depressive disorder (Acute) Family history of congenital heart defect (Acute) PPD#1 D/c home later per patient request PPBC - plan for nexplanon insertion at 2 week PP visit
--- NOTE | 2020-08-01 08:40 | DCINST_ITS ---
Discharge Activity: May Drive, May Shower May resume sexual activity in: 6 weeks Weight Bearing Status: Weight bearing as tolerated Additional Instructions: If you experience any of the following, contact your healthcare provider. * Bleeding that soaks a pad every hour for 2 hours * Fever 100.4 or higher * Unrelieved incision or abdominal pain * Swelling, redness, discharge or bleeding from your incision or episiotomy site * Your incision begins to separate * Problems urinating (including inability to urinate or burning while urinating). * Visual changes * Severe headache * Flu-like symptoms * Pain or redness in one of both of your breasts * Pain, warmth, tenderness or swelling in your legs, especially the calf area * Frequent nausea and vomiting * Symptoms of depression or anxiety If you experience any of the following, call 911 or go to the nearest Emergency Room. * Chest pain * Problems breathing * Seizure activity * Partial or complete paralysis of a body part, slurred speech, weakness or drooping of the face, or a sudden inability to walk or hold your balance Allergies/Adverse Reactions: Allergies shellfish derived Allergy (Verified 07/31/20 07:58) Anaphylaxis Sulfa (Sulfonamide Antibiotics) Allergy (Verified 09/15/19 09:25) Swelling Medications to take at Discharge Albuterol Inhaler [Ventolin Hfa] 1 - 2 puff INHALATION Q4H PRN PRN 05/01/18 Pnv 119/Iron Fum/Folic Acid 1 cap PO DAILY 07/31/20 Sertraline HCl [Zoloft] 50 mg PO DAILY 07/31/20 Acetaminophen [Tylenol] 1,000 mg PO Q8H PRN PRN tablet 08/01/20 Ibuprofen [Motrin] 600 mg PO Q6H PRN PRN tablet 08/01/20 Vits [Prenatabs FA ] 1 tablet PO DAILY@1200 tablet 08/01/20 Primary Care Physician: CLOVER ROBISON [Other] Test Results: Test results from this visit will be discussed in further detail at your follow- up appointment, if applicable.
--- NOTE | 2020-08-01 08:40 | PCM.DCVAG ---
Discharge Activity: May Drive, May Shower May resume sexual activity in: 6 weeks Weight Bearing Status: Weight bearing as tolerated Additional Instructions: If you experience any of the following, contact your healthcare provider. Bleeding that soaks a pad every hour for 2 hours Fever 100.4 or higher Unrelieved incision or abdominal pain Swelling, redness, discharge or bleeding from your incision or episiotomy site Your incision begins to separate Problems urinating (including inability to urinate or burning while urinating). Visual changes Severe headache Flu-like symptoms Pain or redness in one of both of your breasts Pain, warmth, tenderness or swelling in your legs, especially the calf area Frequent nausea and vomiting Symptoms of depression or anxiety If you experience any of the following, call 911 or go to the nearest Emergency Room. Chest pain Problems breathing Seizure activity Partial or complete paralysis of a body part, slurred speech, weakness or drooping of the face, or a sudden inability to walk or hold your balance Allergies/Adverse Reactions: Allergies shellfish derived Allergy (Verified 07/31/20 07:58) Anaphylaxis Sulfa (Sulfonamide Antibiotics) Allergy (Verified 09/15/19 09:25) Swelling Medications to take at Discharge Albuterol Inhaler [Ventolin Hfa] 1 - 2 puff INHALATION Q4H PRN PRN 05/01/18 Pnv 119/Iron Fum/Folic Acid 1 cap PO DAILY 07/31/20 Sertraline HCl [Zoloft] 50 mg PO DAILY 07/31/20 Acetaminophen [Tylenol] 1,000 mg PO Q8H PRN PRN tablet 08/01/20 Ibuprofen [Motrin] 600 mg PO Q6H PRN PRN tablet 08/01/20 Vits [Prenatabs FA ] 1 tablet PO DAILY@1200 tablet 08/01/20 Primary Care Physician: CLOVER ROBISON [Other] Test Results: Test results from this visit will be discussed in further detail at your follow-up appointment, if applicable.
[2020-08-01] MEDS: Prenatal Vits Tablet 1 TABLET PO (11:57)
== END 2020-08-01 16:50 | disposition home or self-care (01) | DRG 560 ==
PROVIDERS: Admitting Provider Advanced Practice Midwife; Referring Provider Advanced Practice Midwife; Visit Provider Advanced Practice Midwife
DX: O99.344 Other mental disorders complicating childbirth (principal); O99.52 Diseases of the respiratory system complicating childbirth; J45.20 Mild intermittent asthma, uncomplicated; Z86.32 Personal history of gestational diabetes; F32.9 Major depressive disorder, single episode, unspecified; F17.200 Nicotine dependence, unspecified, uncomplicated; O99.334 Smoking (tobacco) complicating childbirth; Z3A.39 39 weeks gestation of pregnancy; Z37.0 Single live birth
CPT/HCPCS: 59025; 59050; 85025; 85027; 86850; 86900; 86901; 99218; J7120; A4216; G0378

== ENCOUNTER 2020-11-16 08:50 | Day surgery (SDC) | payer MEDICAID, SELFPAY ==
[2020-07-31 07:27] VITALS: BMI 39.2
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
--- NOTE | 2020-11-16 | IMM_PTH ---
PATIENT: LUIS ALBERTO [place]LEY [place] [facility] [id number] AGE/SX: 25/F ROOM: RE11/16/[address]: Dr. Ana Hall DO : 1995 BED: DIS: 11/16/2020 SPEC #: [id number] RECD: 11/20/20 14:18 STATUS: XAVIER REWillem #: [id number] CATINA: 11/16/20 00:[address]: Ana Hall DEPT: IMMUNOHISTOCHEMISTRY RECD BY: Gill Patel Tissues: D - UTERINE CERVIX LEEP Procedures: p16 (initial) KI-67 (add) PHYSICIAN & INSTITUTION [place] [id number] SPECIMEN INFORMATION: Tissue Source: D - Anterior ectocervix, LEEP conization Clinical Info: High-grade squamous intraepithelial cervical dysplasia, dysfunctional uterine bleeding Specimen Number: [id number] CPT code: 92794, 06580 METHODOLOGY: Deparaffinized sections of prefer/formalin-fixed tissue or PAP/DQ stained slides are incubated with monoclonal/polyclonal antibodies/oligonucleotide probes. Localization is made via biotin free immunoperoxidase method. Appropriate controls are performed and reacted as expected. Results on target cell population are indicated in the following table: RESULTS: ANTIBODY / CLONE RESULT Block D3 P16 (E6H4) positive, focal and patchy Ki-67 (30-9) positive, low These tests were developed and their performance characteristics determined by [facility]. They may not have been cleared or approved by the U.S. Food and Drug Administration. The FDA has determined that such clearance or approval is not necessary. The above immunohistochemical/dualISH markers are ordered and reviewed by the Pathologist. INTERPRETATION: D. Anterior ectocervix, LEEP conization: Focal mild squamous dysplasia. SJ:scott 11/21/2020
--- NOTE | 2020-11-16 | FALS_PTH ---
PATIENT: LUIS ALBERTO MOSLEY LOC: [facility] – [place] U#:[id number] AGE/SX: 25/F ROOM: RE11/16/[address]: Dr. Ana Hall DO : 1995 BED: DIS: 11/16/2020 SPEC #: [id number] RECD: 11/16/20 12:30 STATUS: XAVIER JAMES #: [id number] CATINA: 11/16/20 00:[address]: Ana Hall DEPT: SURGICAL PATHOLOGY RECD BY: Jayy Vick Tissues: A - Fallopian tube B - Endocervical C - Endocervical D - Endocervical Procedures: Surgery Specimen Level II Surgery Specimen Level IV Surgery Specimen Level V HEADER OPERATION: Laparoscopic bilateral salpingectomy, Nexplanon removal PRE-OP DIAGNOSIS: Sterilization, high grade squamous intraepithelial cervical dysplasia, dysfunctional uterine bleeding TISSUE SUBMITTED: A - Bilateral fallopian tubes, B - Endocervical curettings, C - Posterior lip ectocervix, D - Anterior ectocervix, suture at anterior 12 o'clock MICROSCOPIC DIAGNOSIS A. Bilateral fallopian tubes, salpingectomy: Bilateral fallopian tubes including fimbrial ends, no pathologic diagnosis. B. Endocervical curettings: Fragments of benign endocervical mucosa, blood and mucous, negative for dysplasia. C. Posterior lip ectocervix, LEEP conization: Benign ectocervical mucosa, negative for dysplasia. D. Anterior ectocervix, LEEP conization: Focal mild squamous dysplasia with HPV changes (LGSIL, JOAO I). Focal moderate chronic inflammation, mild acute inflammation and squamous metaplasia. Resection margins are free of dysplastic changes. See comment. SJ:rg 11/20/2020 COMMENT D. Immunohistochemistry ([id number]) for surrogate HPV marker (p16) supports the above diagnosis. Case has been reviewed in consultation with Dr. Farnsworth who concurs with the above diagnosis. IDC:AM MICROSCOPIC DESCRIPTION Slides are reviewed. GROSS DESCRIPTION A - Received in fixative is one container labeled with the patient's name and designated bilateral fallopian tubes. The specimen consists of two fallopian tubes with an average length of 6 cm and has an average diameter of 0.5 cm. Both fallopian tubes have normal fimbriated ends. No mass lesions are identified. Safety Security Officer sections are submitted in two cassettes as follows: 1 - one fallopian tube, 2 - the other fallopian tube. B - Received in fixative is one container labeled with the patient's name and designated endocervical curettings. The specimen consists of dark james mucoid material aggregating to 1 x 1 x <0.1 cm. The specimen is totally submitted in one cassette. C - Received in fixative is one container labeled with the patient's name and designated posterior lip ectocervix. The specimen consists of an irregular fragment of james mucosa with attached submucosal tissue measuring 1.5 x 1 x 0.2 cm. The specimen is inked, serially sectioned and totally submitted in one cassette. D - Received in fixative is one container labeled with the patient's name and designated anterior ectocervix. The specimen consists of an elongated fragment of james mucosa measuring 3.5 x 1.5 x 0.2 cm. A suture is present along one edge designating the 12 o'clock position. This edge is inked in black ink. The opposite edge is inked in yellow ink. The remainder of the specimen is inked in green ink. The specimen is serially sectioned and totally submitted in three cassettes. / AM:scott 11/17/20 TC:5 CPT: 89162 x2, 68759, 14106 x2
[2020-11-16 09:17] LABS: Internal QC Validated? YES +Cl - CLEAR BKGD; Pregnancy, Urine Negative Negative
[2020-11-16 09:18] VITALS: BP 123/73; PULSE 82; RESP 16; TEMP 36.8; O2SAT 98; BMI 38.0
[2020-11-16 09:18] LABS: Record Kit Lot#,Urine Preg 42077
[2020-11-16] MEDS: Lactated Ringers 1,000 ML 100 ML IV (09:30)
[2020-11-16 09:51] LABS: Hemoglobin 14.9 g/dL (12.0-15.0); Mean Corp Hgb Conc 33.9 g/dL (32-36); Mean Corpuscular Hgb 30.5 pg (27.0-32.0); Mean Corpuscular Volume 90.2 fL (81-99); Mean Platelet Vol. 10.3 fl (6.2-12.0); Platelet Count 294 K/mm3 (150-450); RBC Distribution Width CV 12.7 % (11.6-14.6); RBC Distribution Width SD 41.7 fl (35.1-43.9); Red Blood Count 4.88 M/mm3 (4.2-5.4); White Blood Count 8.8 K/mm3 (4.4-11.0)
[2020-11-16 09:56] LABS: Prothrombin Time (Protime)PT. 12.5 SECONDS (11.7-14.9)
[2020-11-16 09:57] LABS: Partial Thromboplast Time 28.3 Seconds (24.1-36.2)
[2020-11-16 10:09] LABS: AST(SGOT) 24 U/L (15-37); Alanine Aminotransfer ALT/SGPT 41 U/L (13-56); Albumin, Serum 3.7 g/dL (3.2-5.0); Alkaline Phosphatase 87 U/L (45-117); Bilirubin, Direct 0.09 mg/dL (0.00-0.30); Globulin 3.9 g/dL (2.2-4.2); Protein, Total 7.6 g/dL (6.4-8.2)
--- NOTE | 2020-11-16 10:26 | PCM.OPRPT ---
Problem List (1) Request for sterilization Status: Acute (2) High grade squamous intraepithelial cervical dysplasia Status: Acute (3) DUB (dysfunctional uterine bleeding) Status: Acute (4) Nexplanon in place Status: Acute Report of Operation Date of Procedure: 11/16/20 Pre-Operative Diagnosis: Desires permanent sterilization, high grade squamous intraepithelial cervical dysplasia, DUB with Nexplanon in place Post-Operative Diagnosis: As above Surgery/Procedure Performed:: Laparoscopic bilateral salpingectomy, LEEP cervical excision, ECC, Nexplanon removal Description of Surgical Findings:: Normal-appearing uterus, bilateral tubes, bilateral ovaries. Normal pelvis. Cervix friable. Minimal descent of uterus and cervix paymaster of purses: Aida STALEY - She was present and assisted with the entire portion of the salpingectomy. Type of Anesthesia:: General Special Medications: None Specimen's removed: Bilateral fallopian tubes, cervical biopsy, additional biopsy of posterior cervical lip, endocervical curettings Drains: None Estimated Blood Loss (mL): 50 cc Fluids Replaced: 1000 cc Description of Procedure: Start time 1057 Stop time 1202 Patient was taken to the operating room where general anesthesia was induced and adequate. She was prepped and draped in the dorsal lithotomy using yellowfin stirrups. A weighted speculum was placed below to expose the cervix. The anterior the cervix was grasped with single-tooth tenaculum. A Ana cannula uterine manipulator was placed. Gloves were then changed and attention turned to the abdominal portion of the procedure. Local was infiltrated at all port sites. An incision was made infraumbilically to accommodate a 5 mm port. The port was placed under direct visualization using the laparoscope. Once confirmed intraperitoneal, CO2 insufflation was initiated. Good visualization of the pelvis was obtained. A right lateral 5 mm port was placed. A left lateral 5 mm port was placed. The pelvis was normal-appearing. The left fallopian tube was followed out to the fimbriated end. Using the LigaSure device the mesosalpinx was serially, cauterized, and cut to the level of the cornua of the uterus. Once to the level of the cornua of uterus the left fallopian tube was transected. The fallopian tube was removed and sent to pathology for review. The same was performed to the right fallopian tube, which was removed and sent to pathology for review. Hemostasis was noted. All ports were removed. The abdomen was exsufflated. The port sites were closed with Monocryl and Dermabond glue. Attention was then turned to the below portion of the procedure. A speculum was placed to expose the cervix. Lugol's solution was placed over the cervix. Using 10 cc of 1% lidocaine with epinephrine a paracervical block was performed. Using a 15 mm x 12 mm loop electrode, a cervical biopsy was obtained. This was marked with a suture at the 12 o'clock position. An additional biopsy was taken of the posterior lip of the cervix. An endocervical curetting was performed. The cervical biopsy, additional biopsy of the posterior lip, and endocervical curettings were sent to pathology. Using the rollerball, cautery was initiated over the cervical bed for hemostasis. Monsel solution was placed over the cervix. Hemostasis was noted. All instruments were from the vagina and vaginal sweep was performed. Gloves were then changed. Attention was turned to the Nexplanon removal. 3 cc of half percent Marcaine was injected at the Nexplanon removal site. Using the 11 blade scalpel a small incision was made after the Nexplanon was palpated. The Nexplanon was easily removed through the incision. Steri-Strip was placed. A dressing was placed. Hemostasis was noted. Sponge, instrument and needle counts were correct. Patient was taken recovery in stable condition. Grafts/Implants Used: None - Complications None - Admit VTE Documentation VTE Present on Admission: No VTE Mechan Device Prophylaxis: SCD's
--- NOTE | 2020-11-16 10:27 | DCINST_ITS ---
- Discharge Diagnoses Current Active Problems: Current Active and Chronic Problems Request for sterilization (Acute) High grade squamous intraepithelial cervical dysplasia (Acute) DUB (dysfunctional uterine bleeding) (Acute) Nexplanon in place (Acute) You will use the following diet at home:: No restrictions Your food should be the consistency of: Regular Discharge Activity: May not drive while taking narcotic pain medications., May Shower, - - Nothing in the vagina for 4 weeks - no tampons, no intercourse, no hot tubs, no tub baths, no swimming pools May shower in (days): 1 May resume sexual activity in: 4 weeks Ice area for (Minutes): 15 Weight Bearing Status: Weight bearing as tolerated Lifting Restrictions: Nothing greater than 20 lbs for 2 weeks Call your doctor if your incision/area has: Sudden Increased Bleeding, Increased Pain/ Swelling, Increased Redness, Foul Smelling Discharge, Swelling at the i ncision site Call your doctor if you observe: Fever of 101 or Higher, Inability to urinate, Inability to have a bowel movement, Using more than one pad per hour, Shortness of breath, Dizziness, Fainting spells, Swelling in the ankles, Chest pain, Increased palpitations (irregular heartbeat), Calf discomfort, Uncontrolled pain Suture Line Care: Avoid Pulling/Pushing, Avoid Pinching/Bending Cleanse incision/area with: Soap & Water Allergies/Adverse Reactions: Allergies shellfish derived Allergy (Verified 11/09/20 10:26) Anaphylaxis Sulfa (Sulfonamide Antibiotics) Allergy (Verified 11/09/20 10:26) Swelling hydrocodone [From Vicodin] Adverse Reaction (Verified 11/16/20 09:55) Vomiting Medications to take at Discharge Albuterol Inhaler [Ventolin Hfa] 1 - 2 puff INHALATION Q4H PRN PRN 05/01/18 Sertraline HCl [Zoloft] 100 mg PO DAILY 07/31/20 Acetaminophen [Tylenol] 1,000 mg PO Q8H PRN PRN tab 08/01/20 Ibuprofen [Motrin] 600 mg PO Q6H PRN PRN tab 08/01/20 Etonogestrel [Nexplanon (Bkc)] 68 mg SQ UD 11/09/20 Orders to be completed after discharge: Type & Screen - PAT ONLY Time Frame: 11/16/20, Facility: [facility], Location: Laboratory Primary Care Physician: CLOVER ROBISON [Other] Test Results: Test results from this visit will be discussed in further detail at your follow- up appointment, if applicable. Please Follow Up With: Ana Hall DO When: 1 week and 4 weeks
[2020-11-16] MEDS: Bupivacaine Mpf 0.5% 30 ML VIAL (11:15)
[2020-11-16] MEDS: FERRIC SUBSULFATE 8 GM SOLN (11:25)
[2020-11-16] MEDS: Iodine/Potassium Iodide 14ML Bottle 1 DRP TOPICAL (11:25)
[2020-11-16 12:15] VITALS: BP 123/73; BP 129/70; PULSE 111; RESP 18; TEMP 37.3; O2SAT 94
[2020-11-16 12:30] VITALS: BP 115/71; BP 123/73; PULSE 87; RESP 16; O2SAT 93
[2020-11-16 12:36] VITALS: BP 114/71; BP 123/73; PULSE 104; RESP 16; TEMP 37; O2SAT 92
[2020-11-16 13:24] VITALS: BP 118/69; BP 123/73; PULSE 92; RESP 16; TEMP 36.4; O2SAT 92
== END 2020-11-16 13:29 | disposition home or self-care (01) ==
LOC: SDC 08:51 → AC 08:51
PROVIDERS: Anesthesiology; Referring Provider Obstetrics & Gynecology; Visit Provider Obstetrics & Gynecology
PROC: (CPT 58661; principal; 2020-11-16 10:15)
DX: N87.0 Mild cervical dysplasia (principal); N93.8 Other specified abnormal uterine and vaginal bleeding; Z30.46 Encounter for surveillance of implantable subdermal contraceptive; Z30.2 Encounter for sterilization; Z20.828 Contact with and (suspected) exposure to other viral communicable diseases; F41.9 Anxiety disorder, unspecified; J45.909 Unspecified asthma, uncomplicated; Z87.442 Personal history of urinary calculi; Z79.899 Other long term (current) drug therapy; Z87.891 Personal history of nicotine dependence
CPT/HCPCS: 11982; 57522; 58661; 80076; 81025; 85027; 85610; 85730; 86850; 86900; 86901; 87426; 88302; 88305; 88307; 88341; 88342; C9803; J7120; J2405